=== PATIENT | male | born 1980 ===

== ENCOUNTER 2017-01-28 19:45 | Emergency (ER) | payer SELFPAY ==
--- NOTE | 2017-01-28 19:52 | UC ---
Bite Injury/Animal HPI - HPI Summary HPI Summary: 36 year old male presents with complains of tick bite and rash on his stomach. - History of Current Complaint Stated Complaint: TICK BITE Time Seen by Provider: 01/28/17 19:51 - Allergies/Home Medications Allergies/Adverse Reactions: Allergies Allergy/AdvReac Type Severity Reaction Status Date / Time No Known Allergies Allergy Verified 01/28/17 19:57 PMH/Surg Hx/FS Hx/Imm Hx - Surgical History Surgical History: Yes Surgery Procedure, Year, and Place: left ACL repair - 1999 - Social History Alcohol Use: Occasionally Substance Use Type: Marijuana Smoking Status (MU): Current Some Day Smoker Type: Cigarettes Length of Time of Smoking/Using Tobacco: social smoker Review of Systems Constitutional: Negative Skin: Rash - tick bite Eyes: Negative ENT: Negative Respiratory: Negative Cardiovascular: Negative Gastrointestinal: Negative Genitourinary: Negative Motor: Negative Neurovascular: Negative Musculoskeletal: Negative Neurological: Negative Psychological: Negative All Other Systems Reviewed And Are Negative: Yes Physical Exam Triage Information Reviewed: Yes Eye Exam: Normal ENT Exam: Normal Dental Exam: Normal Neck exam: Normal Neck: Positive: 1 Respiratory Exam: Normal Cardiovascular Exam: Normal Abdominal Exam: Normal Musculoskeletal Exam: Normal Neurological Exam: Normal Psychological Exam: Normal Skin: Positive: rashes - tick bite Bite Injury Course/Dx - Differential Dx/Diagnosis Provider Diagnoses: tick bite. rash Discharge - Discharge Plan Condition: Stable Disposition: HOME Prescriptions: DOXYcycline CAP(*) [DOXYcycline 100MG CAP(*)] 100 mg PO BID #[id number] cap Patient Education Materials: Lyme Disease (ED), Insect Bite or Sting (ED), Tick Bite (ED) Referrals: No Primary Care Phys,NOPCP [Primary Care Provider] -
[2017-01-28 19:58] VITALS: BP 161/100
[2017-01-29 11:01] LABS: Hematocrit 43 % (42-52); Hemoglobin 14.2 g/dl (14.0-18.0); Mean Corpuscular HGB Conc 33 g/dl (31-36); Mean Corpuscular Hemoglobin 31 pg (27-31); Mean Corpuscular Volume 96 fL (80-94); Mean Platelet Volume 10 um3 (7.4-10.4); Red Blood Count 4.53 10^6/ul (4.0-5.4); Red Cell Distribution Width 13 % (10.5-15); White Blood Count 7.4 10^3/ul (3.5-10.8)
[2017-01-29 11:24] LABS: Albumin 4.2 g/dL (3.2-5.2); BUN/Creatinine Ratio 13.6 (8-20); Calcium 9.3 mg/dL (8.6-10.3); EGFR African American 89.8 (>60); EGFR Non-African American 69.8 (>60); Globulin 2.5 g/dL (2-4); Potassium 4.4 mmol/L (3.5-5.0); Total Bilirubin 0.6 mg/dL (0.2-1.0); Total Protein 6.7 g/dL (6.4-8.9)
--- NOTE | 2017-01-30 07:18 | UC ---
Progress - Progress Note Progress Note: call patient. no acute changes on labs (cmp/cbc). f/u PCP for further workup.
== END 2017-01-28 20:20 | disposition home or self-care (01) ==
LOC: UCCORT 19:45
DX: S30.861A Insect bite (nonvenomous) of abdominal wall, initial encounter (principal); R21 Rash and other nonspecific skin eruption; W57.XXXA Bitten or stung by nonvenomous insect and other nonvenomous arthropods, initial encounter; Y93.9 Activity, unspecified; Y92.9 Unspecified place or not applicable; F12.90 Cannabis use, unspecified, uncomplicated; Z72.0 Tobacco use
CPT/HCPCS: 36415; 80053; 85025; 86618; 99212; G0463